=== PATIENT | male | born 1995 | race Caucasian/White ===

== ENCOUNTER 2025-04-20 02:45 | Emergency (ER) | payer BC, SELFPAY ==
[~2025-04-20] VITALS: Ht 188 cm; Wt 86.4 kg
[~2025-04-20 02:45] MED LIST: No home meds
[2025-04-20 03:42] LABS: PLATELET COUNT, AUTOMATED 231 10^3/uL (150-450)
[2025-04-20 04:07] LABS: AMPHETAMINES LEVEL URINE NEGATIVE (NEGATIVE); BARBITURATES URINE NEGATIVE (NEGATIVE); BENZODIAZEPINES URINE NEGATIVE (NEGATIVE); COCAINE METABOLITE URINE NEGATIVE (NEGATIVE)
[2025-04-20 04:08] LABS: METHADONE URINE NEGATIVE (NEGATIVE); OPIATES URINE NEGATIVE (NEGATIVE); PHENCYCLIDINE URINE NEGATIVE (NEGATIVE)
[2025-04-20 04:09] LABS: ETHYL ALCOHOL (ETHANOL) 0.004 % (0.000-0.010)
[2025-04-20 04:10] LABS: CANNABINOIDS URINE POSITIVE (NEGATIVE)
[2025-04-20 04:11] LABS: ALT/SGPT 37 U/L (7.0-40); AST/SGOT 33 U/L (<34); CALCIUM LEVEL 10.1 MG/DL (8.5-10.1); CARBON DIOXIDE LEVEL 26 MMOL/L (20-31); CHLORIDE LEVEL 103 MMOL/L (98-107); CREATININE FOR GFR 1.09 MG/DL (0.70-1.30); GLOMERULAR FILTRATION RATE > 90.0 (>60); POTASSIUM SERUM 4.1 MMOL/L (3.5-5.1); SALICYLATE LEVEL < 3.0 MG/DL (<30); SODIUM LEVEL 140 MMOL/L (136-145)
[2025-04-20 09:07] VITALS: BP 150/79; TEMP 97.5; O2SAT 99
[2025-04-20] MEDS ORDERED: HOME MED LIST COMPLETE! XX SCH (09:25)
== END 2025-04-20 09:48 | disposition home or self-care (01) ==
LOC: M ED 02:45
DX: F43.20 Adjustment disorder, unspecified (principal); F12.10 Cannabis abuse, uncomplicated